=== PATIENT | female | born 1965 | race Caucasian/White ===

== ENCOUNTER 2017-04-08 11:43 | Emergency (ER) | payer OTHER ==
[2017-04-08 11:56] VITALS: O2SAT 99
--- NOTE | 2017-04-08 12:05 | C.PDOC ---
History Of Present Illness 51 year old female with a history of migraines presents to the ED with complaints of constant, waxing and waning, headache, nausea, and dizziness for one week. Patient notes current headache is in a different location then previous migraines and describes dizziness as begin exacerbated by movement. She denies vomiting, earache, chest pain, shortness of breath, or fever. Time Seen by Provider: 04/08/17 11:57 Chief Complaint (Nursing): Headache History Per: Patient History/Exam Limitations: no limitations Onset/Duration Of Symptoms: Days (1 week ), Worse Since (last night ) Current Symptoms Are (Timing): Still Present Preceeding Symptoms: denies: Visual Disturbances Associated Symptoms: Nausea. denies: Photophobia, Blurred Vision, Vomiting, Extremity Weakness Recent travel outside of the [place]: No Past Medical History Reviewed: Historical Data, Nursing Documentation, Vital Signs Vital Signs: Last Vital Signs Temp 97.5 F L 04/08/17 11:52 Pulse 59 L 04/08/17 11:52 Resp 20 04/08/17 11:52 BP 142/79 04/08/17 11:52 Pulse Ox 99 04/08/17 13:05 - Medical History PMH: HTN, Migraine Family History: States: Unknown Family Hx - Social History Hx Alcohol Use: No Hx Substance Use: No - Immunization History Hx Tetanus Toxoid Vaccination: No Hx Influenza Vaccination: Yes (2016) Hx Pneumococcal Vaccination: Yes (2016) Review Of Systems Constitutional: Negative for: Fever, Chills Cardiovascular: Negative for: Chest Pain, Palpitations Respiratory: Negative for: Cough, Shortness of Breath Gastrointestinal: Positive for: Nausea. Negative for: Vomiting, Abdominal Pain , Diarrhea Neurological: Positive for: Headache, Dizziness. Negative for: Weakness, Numbness Physical Exam - Physical Exam Additional Physical Exam Comments: Constitutional: No acute distress. Head: Normocephalic. Atraumatic. Eyes: PERRL. ENT: Moist mucous membranes. TM normal. Neck: Supple. Cardiovascular: Regular rate. Radial pulse 2+ bilaterally. Chest: No tenderness. Respiratory: Clear to auscultation bilaterally. GI: Soft. Nontender. Nondistended. Back: No CVA tenderness. Musculoskeletal: No tenderness or swelling of extremities. Skin: No rash. Neurologic: Alert, no focal deficit. Positive Emperatriz hallpike. Oriented x 3. CN II to XII intact. Motor 5/5 x 4. Sensation to light touch intact bilaterally. Gait normal. Finger to nose test normal. Heel to burton test normal. ED Course And Treatment O2 Sat by Pulse Oximetry: 99 (RA) Progress Note: Patient was given Tylenol, Toradol, Antivert, Reglan, and IV fluids. Medical Decision Making Medical Decision Making: After treatment, patient states she feels much better and symptoms are gone. Will discharge, instructed to f/u with ENT, return to ED for worsening pain, fever, stiff neck, numbness, weakness, intractible vomiting, intractible vertigo , or any other problem. Disposition - Disposition Referrals: Moe Yang MD [Staff Provider] - Disposition: HOME/ ROUTINE Disposition Time: 14:18 Condition: STABLE Prescriptions: Meclizine [Antivert] 25 mg PO TID PRN #20 tab PRN Reason: Dizziness Instructions: Benign Paroxysmal Positional Vertigo (ED) Forms: [employer] (Tuvaluan) - Clinical Impression Clinical Impression: Benign paroxysmal positional vertigo - Scribe Statement The provider has reviewed the documentation as recorded by the Scribe Katie Tomlinson All medical record entries made by the Scribe were at my direction and personally dictated by me. I have reviewed the chart and agree that the record accurately reflects my personal performance of the history, physical exam, medical decision making, and the department course for this patient. I have also personally directed, reviewed, and agree with the discharge instructions and disposition.
[2017-04-08] MEDS ORDERED: Sodium Chloride 0.9% 1,000 ML IV STA (12:31)
[2017-04-08] MEDS ORDERED: Sodium Chloride 0.9% 1,000 ML ONE (12:50)
[2017-04-08 14:21] VITALS: BP 119/60; PULSE 64; RESP 18; TEMP 97.9
== END 2017-04-08 14:36 | disposition home or self-care (01) ==
LOC: C.ER 11:43
DX: H81.10 Benign paroxysmal vertigo, unspecified ear (principal); I10 Essential (primary) hypertension
CPT/HCPCS: 96361; 96374; 96375; 99284; J1885; J2765; J7040

== ENCOUNTER 2017-10-21 16:50 | Emergency (ER) | payer OTHER ==
[2017-10-21] MEDS ORDERED: Albuterol-Ipratrop 3 mg / 0.5 (3 ml) UD ONE ×2 (17:15→20:13)
[2017-10-21] MEDS ORDERED: Albuterol-Ipratrop 3 mg / 0.5 (3 ml) UD INH STA ×3 (17:19→18:27)
[2017-10-21] MEDS ORDERED: MethylPREDNISolone 40 mg Vial IVP STA (18:27)
--- NOTE | 2017-10-21 18:29 | C.PDOC ---
History Of Present Illness 52 y/o female with history of Asthma presents to ED with c/o productive green sputum cough, wheezing, chest tightness and subjective fever "for last few days ". Patient admits to chills and denies sob, nausea, vomiting, back pain or any other complaints at this time. Time Seen by Provider: 10/21/17 18:16 Chief Complaint (Nursing): Shortness Of Breath History Per: Patient History/Exam Limitations: no limitations Onset/Duration Of Symptoms: Days Current Symptoms Are (Timing): Still Present Initiating Event: Upper Respiratory Illness Past Medical History Reviewed: Historical Data, Nursing Documentation, Vital Signs Vital Signs: Last Vital Signs Temp 98.0 F 10/21/17 21:50 Pulse 75 10/21/17 21:50 Resp 18 10/21/17 21:50 BP 158/72 H 10/21/17 21:50 Pulse Ox 100 10/21/17 21:50 - Medical History PMH: HTN, Migraine Surgical History: No Surg Hx Family History: States: No Known Family Hx - Social History Hx Alcohol Use: No Hx Substance Use: No - Immunization History Hx Tetanus Toxoid Vaccination: No Hx Influenza Vaccination: Yes (2016) Hx Pneumococcal Vaccination: Yes (2016) Review Of Systems Constitutional: Negative for: Fever, Chills Cardiovascular: Positive for: Chest Pain Respiratory: Positive for: Cough, Wheezing. Negative for: Shortness of Breath Gastrointestinal: Negative for: Nausea, Vomiting Musculoskeletal: Negative for: Back Pain Skin: Negative for: Rash Physical Exam - Physical Exam Appears: Non-toxic, No Acute Distress Skin: Warm, Dry, No Rash Head: Atraumatic, Normacephalic Eye(s): bilateral: Normal Inspection Oral Mucosa: Moist Neck: Normal ROM, Supple Cardiovascular: Rhythm Regular Respiratory: No Rales, No Rhonchi, Wheezing (diffuse) Gastrointestinal/Abdominal: Soft, No Tenderness, No Guarding, No Rebound Extremity: Normal ROM, Capillary Refill (<2 seconds) Neurological/Psych: Oriented x3, Normal Speech, Normal Cognition ED Course And Treatment - Laboratory Results Result Diagrams: 10/21/17 19:35 10/21/17 19:35 O2 Sat by Pulse Oximetry: 98 (RA) Pulse Ox Interpretation: Normal Medical Decision Making Medical Decision Making: cxr neg as read by me. symptoms improved. pt seen speaking full sentences conversing with friend in nad. stable for dc. wheezing resolved Disposition - Disposition Referrals: [facility] [Outside] [facility] [Outside] Disposition: HOME/ ROUTINE Disposition Time: 21:00 Condition: STABLE Additional Instructions: please follow up with your doctor/clinic return to er with worsening symptoms orconcerns Prescriptions: Albuterol 0.083% [Albuterol 0.083% Inhal Luisa (2.5 mg/3 ml) UD] 2.5 mg IH Q6 PRN #20 neb PRN Reason: Wheezing Nebulizer [Aeroeclipse II] 1 each MC Q6 PRN #1 each PRN Reason: Wheezing Nebulizer Accessories [Sidestream Mask] 1 each MC Q6 PRN #1 each PRN Reason: Wheezing Prednisone 50 mg PO DAILY #5 tab Instructions: Asthma, Adult (DC) Forms: [employer] Connect (Persian) Print Language: ARMENIAN - Clinical Impression Clinical Impression: Asthma - Scribe Statement The provider has reviewed the documentation as recorded by the Lennoxibeileen Ortiz All medical record entries made by the Lennoxibeileen were at my direction and personally dictated by me. I have reviewed the chart and agree that the record accurately reflects my personal performance of the history, physical exam, medical decision making, and the department course for this patient. I have also personally directed, reviewed, and agree with the discharge instructions and disposition.
[2017-10-21] MEDS ORDERED: Sodium Chloride 0.9% 1,000 ML IV ONE (18:31)
[2017-10-21] MEDS ORDERED: Sodium Chloride 0.9% 1,000 ML ONE (19:27)
[2017-10-21 19:38] LABS: BASO # 0.1 K/uL (0.0-0.2); BASO % 1.6 % (0.0-2.0); EOS # 0.5 K/uL (0.0-0.7); EOS % 7.7 % (0.0-4.0); HEMOGLOBIN 12.1 g/dL (11.0-16.0); LYMPH # 1.7 K/uL (1.0-4.3); LYMPH % 26.7 % (20.0-40.0); MEAN CELL VOLUME 82.4 fL (81.0-99.0); MEAN CORPUSCULAR HEMOGLOBIN 27.3 pg (27.0-31.0); MEAN CORPUSCULAR HGB CONC 33.2 g/dL (33.0-37.0); MEAN PLATELET VOLUME 8.6 fL (7.2-11.7); MONO # 0.5 K/uL (0.0-0.8); MONO % 7.7 % (0.0-10.0); NEUT # 3.5 K/uL (1.8-7.0); NEUT % 56.3 % (50.0-75.0); RBC 4.44 Mil/uL (3.80-5.20); RED CELL DISTRIBUTION WIDTH 15.3 % (11.5-14.5); WHITE BLOOD COUNT 6.3 K/uL (4.8-10.8)
[2017-10-21 19:48] LABS: PROTHROMBIN TIME 11.2 SECONDS (9.7-12.2)
[2017-10-21 19:51] LABS: ALB/GLOB RATIO 1.2 (1.0-2.1); ALT/SGPT 22 U/L (9-52); AST/SGOT 24 U/L (14-36); BLOOD UREA NITROGEN 20 mg/dL (7-17); GFR AFRICAN-AMERICAN > 60; GFR NON-AFRICAN AMERICAN 58
[2017-10-21 20:26] LABS: SQUAMOUS EPITHIAL 2 /hpf (0-5); URINE BILIRUBIN NEGATIVE (NEGATIVE); URINE BLOOD 3+ (NEGATIVE); URINE CLARITY Clear (Clear); URINE COLOR Red (YELLOW); URINE GLUCOSE (UA) NORMAL (Normal); URINE LEUKOCYTE ESTERASE NEG Leu/uL (Negative); URINE PROTEIN NEGATIVE (NEGATIVE); URINE UROBILINOGEN NORMAL mg/dL (0.2-1.0)
[2017-10-21 21:51] VITALS: BP 158/72; PULSE 75; RESP 18; TEMP 98
[2017-10-21 22:22] VITALS: O2SAT 98
--- NOTE | 2017-10-22 08:40 | RAD ---
HISTORY: chest pain COMPARISON: Chest radiograph dated 03/12/2016 TECHNIQUE: Chest PA and lateral FINDINGS: LUNGS: No active pulmonary disease. PLEURA: No significant pleural effusion identified. No pneumothorax apparent. CARDIOVASCULAR: Normal. OSSEOUS STRUCTURES: No significant abnormalities. VISUALIZED UPPER ABDOMEN: Normal. OTHER FINDINGS: None. IMPRESSION: No active disease.
== END 2017-10-21 21:59 | disposition home or self-care (01) ==
LOC: C.ER 16:50
DX: J45.909 Unspecified asthma, uncomplicated (principal)
CPT/HCPCS: 71046; 80053; 81001; 84484; 85025; 85610; 85730; 96374; 99285; J2920; J7040

== ENCOUNTER 2017-12-28 13:38 | Emergency (ER) | payer OTHER ==
[2017-12-28 13:48] VITALS: BP 120/72; PULSE 75; TEMP 98.2; O2SAT 99
[2017-12-28] MEDS ORDERED: Naproxen 550 mg Tab PO STA (14:02)
[2017-12-28] MEDS ORDERED: Naproxen 550 mg Tab PO ONE (14:11)
--- NOTE | 2017-12-28 14:18 | C.PDOC ---
History Of Present Illness 52 year old female with PMHx of asthma and migraines presents to the ED complaining of sore throat, lower back pain and headache for one week. (+) subjective fever yesterday. Headache is the same as her usual migraine headaches , no change in symptoms. She denies any recent travel, rash, urinary/bowel incontinence, change in sensation, photophobia, dizziness, syncope, nausea, vomiting, diarrhea, dysuria, or urinary frequency . Time Seen by Provider: 12/28/17 13:50 Chief Complaint (Nursing): ENT Problem History Per: Patient History/Exam Limitations: no limitations Onset/Duration Of Symptoms: Days Current Symptoms Are (Timing): Still Present Past Medical History Reviewed: Historical Data, Nursing Documentation, Vital Signs Vital Signs: Last Vital Signs Temp 98.2 F 12/28/17 13:46 Pulse 75 12/28/17 13:46 Resp 16 12/28/17 14:55 BP 120/72 12/28/17 13:46 Pulse Ox 99 12/28/17 14:33 - Medical History PMH: HTN, Migraine Denies: Diabetes, Hepatitis, HIV, Seizures, Sexually Transmitted Disease Other Surgeries: Right knee surgery Family History: States: No Known Family Hx - Social History Hx Alcohol Use: No Hx Substance Use: No - Immunization History Hx Tetanus Toxoid Vaccination: No Hx Influenza Vaccination: Yes (2016) Hx Pneumococcal Vaccination: Yes (2016) Review Of Systems Except As Marked, All Systems Reviewed And Found Negative. Constitutional: Positive for: Fever ENT: Positive for: Throat Pain Gastrointestinal: Negative for: Nausea, Vomiting, Abdominal Pain, Diarrhea Genitourinary: Negative for: Dysuria, Frequency, Vaginal Discharge, Vaginal Bleeding Musculoskeletal: Positive for: Back Pain (Lower back pain ), Other (Hip pain ) Neurological: Positive for: Headache Physical Exam - Physical Exam Appears: Non-toxic, No Acute Distress Skin: Normal Color, Warm, Dry Head: Atraumatic, Normacephalic Eye(s): bilateral: Normal Inspection, PERRL, EOMI Ear(s): Bilateral: Normal Nose: Normal Oral Mucosa: Moist Tongue: Normal Appearing Lips: Normal Appearing Teeth: Normal Dentition Gingiva: Normal Appearing Throat: Erythema, No Exudate, No Drooling Neck: Normal ROM, Supple Chest: Symmetrical Cardiovascular: Rhythm Regular Respiratory: Normal Breath Sounds, No Rales, No Rhonchi, No Wheezing Gastrointestinal/Abdominal: Soft, No Tenderness Back: No CVA Tenderness, No Vertebral Tenderness, Paraspinal Tenderness ((+) lower paralumbar tenderness) Extremity: Normal ROM Neurological/Psych: Oriented x3, Normal Speech Gait: Steady ED Course And Treatment O2 Sat by Pulse Oximetry: 99 (RA) Pulse Ox Interpretation: Normal Progress Note: Patient given Naproxen. Rapid Strep and UA ordered. On reassessment, patient is resting comfortably, is tolerating PO, and pain has improved. Patient has no neurologic deficit, photophobia, rash, fever, or nuchal rigidity. Patient was instructed to follow up with physician/clinic in 1 -2 days. Disposition - Disposition Disposition: HOME/ ROUTINE Disposition Time: 14:32 Condition: STABLE Additional Instructions: Vaya a shaikh mdico o la clnica en 2-5 wright sin falta, para mas evaluacin. [employer] los medicamentos fady indicado. Volver a la ronaldo de emergencia en cualquier momento si los sntomas persisten o empeoran. Prescriptions: Nitrofurantoin Macrocrystals [Macrobid] 1 cap PO BID #14 cap Instructions: Sore Throat, Adult (DC) Forms: [employer] (Filipino) Print Language: TAJIK - Clinical Impression Clinical Impression: UTI (urinary tract infection), Pharyngitis - PA / SURVEILLANCE [employer] OFFICER / Resident Statement MD/DO has reviewed & agrees with the documentation as recorded. - Scribe Statement The provider has reviewed the documentation as recorded by the Scribe Allie Mary All medical record entries made by the Scribe were at my direction and personally dictated by me. I have reviewed the chart and agree that the record accurately reflects my personal performance of the history, physical exam, medical decision making, and the department course for this patient. I have also personally directed, reviewed, and agree with the discharge instructions and disposition.
[2017-12-28 14:24] LABS: SQUAMOUS EPITHIAL 23 /hpf (0-5); URINE AMORPHOUS SEDIMENT FEW /ul (<OCC); URINE BACTERIA FEW (<OCC); URINE BILIRUBIN NEGATIVE (NEGATIVE); URINE BLOOD 1+ (NEGATIVE); URINE CLARITY Hazy (Clear); URINE COLOR Yellow (YELLOW); URINE GLUCOSE (UA) NORMAL (Normal); URINE LEUKOCYTE ESTERASE 3+ Leu/uL (Negative); URINE PROTEIN NEGATIVE (NEGATIVE); URINE UROBILINOGEN NORMAL mg/dL (0.2-1.0)
[2017-12-28 14:55] VITALS: RESP 16
== END 2017-12-28 14:55 | disposition home or self-care (01) ==
LOC: C.ER 13:38
DX: N39.0 Urinary tract infection, site not specified (principal); J02.9 Acute pharyngitis, unspecified